=== PATIENT | male | born 1940 | race Caucasian/White ===

== ENCOUNTER 2017-07-30 20:15 | Observation (INO) | payer OTHER, MEDICARE ==
[~2017-07-30] VITALS: Ht 185.4 cm; Wt 81.9 kg
[2017-07-30] MEDS ORDERED: ASPI81CH PO (20:34)
[2017-07-30] MEDS ORDERED: C-10001000 M1 PO (20:34)
[2017-07-30] MEDS ORDERED: HYDCHL50 PO (20:35)
[2017-07-30] MEDS ORDERED: METO25ER PO ×2 (20:35→20:37)
[2017-07-30] MEDS ORDERED: GEMF600 PO ×2 (20:35→20:38)
[2017-07-30] MEDS ORDERED: NITR.4SL SL (20:36)
[2017-07-30 23:29] LABS: U Amphetamine Screen Not Detected; U Barbituate Screen Not Detected; U Benzodiazapine Screen Not Detected; U Buprenorphine Screen Not Detected; U Cannabinoids Screen Not Detected; U Cocaine Screen Not Detected; U Methadone Screen Not Detected; U Methamphetamine Screen Not Detected; U Opiates Screen Not Detected; U Oxycodone Screen Not Detected; U Phencyclidine Screen Not Detected; U Propoxyphene Screen Not Detected
[2017-07-30 23:55] LABS: BASOPHILS ABSOLUTE AUTO 0.05 K/mm3 (0.00-0.23); BASOPHILS PERCENT AUTO 1 % (0-2); EOSINOPHILS PERCENT AUTO 2 % (0-6); Hematocrit 32.4 % (37.0-53.0); Hemoglobin 10.2 g/dL (13.5-17.5); IMMATURE GRAN ABSOLUTE AUTO 0.01 K/mm3 (0.00-0.10); IMMATURE GRAN PERCENT AUTO 0 % (0-1); LYMPHOCYTES ABSOLUTE AUTO 1.48 K/mm3 (0.84-5.20); LYMPHOCYTES PERCENT AUTO 25 % (21-46); MONOCYTES ABSOLUTE AUTO 0.55 K/mm3 (0.16-1.47); MONOCYTES PERCENT AUTO 9 % (4-13); Mean Corpuscular HGB 30.2 pg (26.0-34.0); Mean Corpuscular HGB Conc 31.5 g/dL (31.5-36.5); Mean Corpuscular Volume 96 fL (80-100); Mean Platelet Volume 8.2 fL (9.1-12.4); NEUTROPHILS ABSOLUTE AUTO 3.68 K/mm3 (1.96-9.15); NEUTROPHILS PERCENT AUTO 63 % (41-73); Platelet Count 182 K/mm3 (150-400); RDW Coefficient Variation 14.4 % (11.7-14.2); RDW Standard Deviation 51.1 fL (35.1-46.3); Red Blood Cell Count 3.38 M/mm3 (4.30-5.90); White Blood Cell Count 5.87 K/mm3 (4.00-11.30)
[2017-07-31 00:46] LABS: Anion Gap 8 mmol/L (6-16); Blood Urea Nitrogen 19 mg/dL (8-24); Bun/Creatinine Ratio 15.3 (12.0-20.0); CO2, Blood 26 mmol/L (21-32); Calcium, Blood 9.1 mg/dL (8.5-10.1); Chloride, Blood 102 mmol/L (98-108); Creatinine, Blood 1.24 mg/dL (0.60-1.20); Ethanol (Alcohol), Blood, Med <3 mg/dL; Glomerular Filtration Rate >60 (60-); Glucose, Blood 92 mg/dL (70-99); Potassium, Blood 4.7 mmol/L (3.5-5.5); Sodium, Blood 136 mmol/L (136-145); Troponin I <0.015 ng/mL (0.000-0.040)
[2017-07-31 06:27] LABS: Hematocrit 32.4 % (37.0-53.0); Mean Corpuscular HGB 29.4 pg (26.0-34.0); Mean Corpuscular HGB Conc 30.9 g/dL (31.5-36.5); Mean Corpuscular Volume 95 fL (80-100); Mean Platelet Volume 8.6 fL (9.1-12.4); Platelet Count 181 K/mm3 (150-400); RDW Coefficient Variation 14.4 % (11.7-14.2); RDW Standard Deviation 50.5 fL (35.1-46.3); White Blood Cell Count 5.29 K/mm3 (4.00-11.30)
[2017-07-31 07:37] LABS: BASOPHILS ABSOLUTE MAN 0.05 K/mm3 (0.00-0.23); BASOPHILS PERCENT MAN 1 % (0-2); EOSINOPHILS ABSOLUTE MAN 0.05 K/mm3 (0.00-0.68); EOSINOPHILS PERCENT MAN 1 % (0-6); LYMPHOCYTES % ATYPICAL MANUAL 2 % (0-0); LYMPHOCYTES ABSOLUTE MAN 1.74 K/mm3 (0.84-5.20); LYMPHOCYTES PERCENT MAN 31 % (21-46); MONOCYTES ABSOLUTE MAN 0.52 K/mm3 (0.16-1.47); MONOCYTES PERCENT MAN 10 % (4-13); SEG NEUTROPHILS PERCENT MAN 55 % (41-73); TOTAL CELLS COUNTED 100
[2017-07-31 07:54] LABS: Anion Gap 8 mmol/L (6-16); Blood Urea Nitrogen 17 mg/dL (8-24); Bun/Creatinine Ratio 15.6 (12.0-20.0); CHOL/HDL RATIO 2.4; CO2, Blood 23 mmol/L (21-32); Calcium, Blood 8.9 mg/dL (8.5-10.1); Chloride, Blood 104 mmol/L (98-108); Cholesterol 82 mg/dL (50-200); Creatinine, Blood 1.09 mg/dL (0.60-1.20); Glomerular Filtration Rate >60 (60-); Glucose, Blood 76 mg/dL (70-99); HDL Cholesterol 34 mg/dL (>39); LDL/HDL RATIO 1.1; Low Density Lipoprotein Chol 39 mg/dL (0-110); Potassium, Blood 4.1 mmol/L (3.5-5.5); Sodium, Blood 135 mmol/L (136-145); Triglycerides 47 mg/dL (30-160); Troponin I <0.015 ng/mL (0.000-0.040); Very Low Density Lipoprot Chol 9 mg/dL (6-32)
[2017-07-31 08:21] LABS: Percent Saturation 97.9 % (20.0-50.0)
[2017-07-31 10:43] LABS: Source, Urine Clean Catch
[2017-07-31 10:45] LABS: Bilirubin, Urine Neg (Neg); Blood, Urine 3+ (Neg); Glucose Qualitative, Urine Neg (Neg); Ketones, Urine 2+ (Neg); Leukocyte Esterase, Urine Neg (Neg); Nitrite, Urine Neg (Neg); Protein, Urine 1+ (Neg); Urobilinogen, Urine NORM (Normal)
[2017-07-31 10:50] LABS: Appearance, Urine Clear (Clear); Color, Urine Yellow (P-Yellow)
[2017-07-31 10:57] LABS: Bacteria Rare /hpf; Squamous Epithelial Cells Rare /hpf (Few); White Blood Cells, Urine Not Seen /hpf (0-5)
[2017-08-01 10:58] LABS: International Normalized Ratio 1.15
[2017-08-01 11:29] LABS: Percent Saturation 97.3 % (20.0-50.0)
[2017-08-01] MEDS ORDERED: Fludrocortison0.1 MG PO (12:38)
== END 2017-08-01 14:28 | disposition home or self-care (01) ==
LOC: ER 20:15 → MEDS 20:16 → ER 22:57 → MEDS 08-01 14:28
PROVIDERS: Family Medicine; Internal Medicine
DX: R55 Syncope and collapse (principal); I10 Essential (primary) hypertension; E78.5 Hyperlipidemia, unspecified; I25.10 Atherosclerotic heart disease of native coronary artery without angina pectoris; D53.9 Nutritional anemia, unspecified; Z90.49 Acquired absence of other specified parts of digestive tract; Z86.73 Personal history of transient ischemic attack (TIA), and cerebral infarction without residual deficits; Z88.0 Allergy status to penicillin; Z88.8 Allergy status to other drugs, medicaments and biological substances; Z79.82 Long term (current) use of aspirin; Z87.891 Personal history of nicotine dependence; Z98.890 Other specified postprocedural states
CPT/HCPCS: 36415; 70450; 72040; 80048; 80061; 81001; 82533; 82607; 82728; 82746; 82947; 83540; 83550; 83880; 84443; 84466; 84484; 85025; 85610; 85730; 93005; 93010; 93306; 96361; 96372; 96376; 99285; G0378; G0480; J0360; J1650; J7030

== ENCOUNTER 2020-12-26 19:28 | Inpatient (IN) | payer OTHER, MEDICARE ==
[~2020-12-26] VITALS: Ht 188 cm; Wt 96.6 kg
[~2020-12-26 19:28] MED LIST: ASPI81CH PO; C-10001000 M1 PO; Fludrocortison0.1 MG PO; GEMF600 PO; HYDCHL50 PO; METO25ER PO; NITR.4SL SL
[2020-12-26 21:19] LABS: BASOPHILS ABSOLUTE AUTO 0.05 K/mm3 (0.00-0.23); BASOPHILS PERCENT AUTO 1 % (0-2); EOSINOPHILS ABSOLUTE AUTO 0.04 K/mm3 (0.00-0.68); EOSINOPHILS PERCENT AUTO 0 % (0-6); Hematocrit 43.4 % (37.0-53.0); Hemoglobin 14.6 g/dL (13.5-17.5); IMMATURE GRAN ABSOLUTE AUTO 0.03 K/mm3 (0.00-0.10); IMMATURE GRAN PERCENT AUTO 0 % (0-1); LYMPHOCYTES ABSOLUTE AUTO 0.82 K/mm3 (0.84-5.20); LYMPHOCYTES PERCENT AUTO 8 % (21-46); MONOCYTES ABSOLUTE AUTO 0.88 K/mm3 (0.16-1.47); MONOCYTES PERCENT AUTO 9 % (4-13); Mean Corpuscular HGB 31.8 pg (26.0-34.0); Mean Corpuscular HGB Conc 33.6 g/dL (31.5-36.5); Mean Corpuscular Volume 95 fL (80-100); Mean Platelet Volume 9.2 fL (9.1-12.4); NEUTROPHILS ABSOLUTE AUTO 8.19 K/mm3 (1.96-9.15); NEUTROPHILS PERCENT AUTO 82 % (41-73); Platelet Count 189 K/mm3 (150-400); RDW Coefficient Variation 13.1 % (11.7-14.2); RDW Standard Deviation 45.8 fL (35.1-46.3); Red Blood Cell Count 4.59 M/mm3 (4.30-5.90); White Blood Cell Count 10.01 K/mm3 (4.00-11.30)
[2020-12-26 21:53] LABS: Alanine Aminotransfer (ALT/SGP 52 U/L (12-78); Albumin, Blood 3.8 g/dL (3.4-5.0); Albumin/Globulin Ratio 1.3 (0.8-1.8); Alk Phos 72 U/L (50-136); Anion Gap 4 mmol/L (6-16); Aspartate Aminotrans (AST/SGOT 169 U/L (12-37); Bilirubin, Total 1.2 mg/dL (0.1-1.0); Blood Urea Nitrogen 14 mg/dL (8-24); Bun/Creatinine Ratio 12.2 (12.0-20.0); CO2, Blood 28 mmol/L (21-32); Calcium, Blood 8.6 mg/dL (8.5-10.1); Chloride, Blood 103 mmol/L (98-108); Creatinine, Blood 1.15 mg/dL (0.60-1.20); Globulin, Blood 2.9 g/dL (2.2-4.0); Glomerular Filtration Rate >60 (60-); Glucose, Blood 117 mg/dL (70-99); Sodium, Blood 135 mmol/L (136-145); Total Protein, Blood 6.7 g/dL (6.4-8.2)
--- NOTE | 2020-12-27 01:05 | NUR ---
PT ARRIVES TO ICU 8 VIA GURNEY FROM ER, DENIES PAIN ON ARRIVAL, DENIES CP/PRESSURE, DENIES DIZZINESS/VERTIGO, DENIES SOB/DYSPNEA. STANDS TO TRANSFER WITH STEADY GAIT. LUNGS CLEAR THROUGHOUT, SATS HIGH 90S ON ROOM AIR, SPEAKING IN FULL SENTENCES WITHOUT VISIBLE INCREASED WORK OF BREATHING NOTED. HRR, 3RD DEGREE AV BLOCK IS NOTED ON MONITOR, RATE 40S, PRESSURES ARE MAINTAINING AND PULSES ARE FULL X 4 EXTREMITIES, NO EDEMA IS NOTED, SKIN PWD WITH BRISK CAP REFILL. ACTIVE BOWEL TONES, ABD SOFT, NONTENDER TO PALPATION. VOIDS CLEAR DARK YELLOW URINE WITHOUT DIFFICULTY. IV ACCESS TO LEFT WRIST NOTED, WILL PLAN TO ATTEMPT EXTENDED DWELL.
[2020-12-27] MEDS ORDERED: Vitamin B-121000 MCG PO (01:24)
[2020-12-27] MEDS ORDERED: VITAMIN D310 MC4 PO (01:26)
[2020-12-27 04:16] LABS: BASOPHILS ABSOLUTE AUTO 0.04 K/mm3 (0.00-0.23); BASOPHILS PERCENT AUTO 0 % (0-2); EOSINOPHILS ABSOLUTE AUTO 0.02 K/mm3 (0.00-0.68); EOSINOPHILS PERCENT AUTO 0 % (0-6); Hematocrit 38.6 % (37.0-53.0); Hemoglobin 13.1 g/dL (13.5-17.5); IMMATURE GRAN ABSOLUTE AUTO 0.03 K/mm3 (0.00-0.10); IMMATURE GRAN PERCENT AUTO 0 % (0-1); LYMPHOCYTES ABSOLUTE AUTO 1.13 K/mm3 (0.84-5.20); LYMPHOCYTES PERCENT AUTO 12 % (21-46); MONOCYTES ABSOLUTE AUTO 0.88 K/mm3 (0.16-1.47); MONOCYTES PERCENT AUTO 9 % (4-13); Mean Corpuscular HGB 32.3 pg (26.0-34.0); Mean Corpuscular HGB Conc 33.9 g/dL (31.5-36.5); Mean Corpuscular Volume 95 fL (80-100); Mean Platelet Volume 9.3 fL (9.1-12.4); NEUTROPHILS ABSOLUTE AUTO 7.53 K/mm3 (1.96-9.15); NEUTROPHILS PERCENT AUTO 78 % (41-73); Platelet Count 164 K/mm3 (150-400); RDW Coefficient Variation 13.1 % (11.7-14.2); RDW Standard Deviation 45.9 fL (35.1-46.3); Red Blood Cell Count 4.05 M/mm3 (4.30-5.90); White Blood Cell Count 9.63 K/mm3 (4.00-11.30)
[2020-12-27 04:56] LABS: Alanine Aminotransfer (ALT/SGP 42 U/L (12-78); Albumin, Blood 3.3 g/dL (3.4-5.0); Albumin/Globulin Ratio 1.3 (0.8-1.8); Alk Phos 62 U/L (50-136); Anion Gap 5 mmol/L (6-16); Aspartate Aminotrans (AST/SGOT 133 U/L (12-37); Bilirubin, Total 1.4 mg/dL (0.1-1.0); Blood Urea Nitrogen 16 mg/dL (8-24); Bun/Creatinine Ratio 13.2 (12.0-20.0); CHOL/HDL RATIO 2.9; CO2, Blood 27 mmol/L (21-32); Chloride, Blood 103 mmol/L (98-108); Cholesterol 117 mg/dL (50-200); Creatinine, Blood 1.21 mg/dL (0.60-1.20); Globulin, Blood 2.5 g/dL (2.2-4.0); Glomerular Filtration Rate >60 (60-); Glucose, Blood 127 mg/dL (70-99); HDL Cholesterol 40 mg/dL (>39); LDL/HDL RATIO 1.8; Low Density Lipoprotein Chol 71 mg/dL (0-110); Sodium, Blood 135 mmol/L (136-145); Total Protein, Blood 5.8 g/dL (6.4-8.2); Triglycerides 32 mg/dL (30-160); Very Low Density Lipoprot Chol 6 mg/dL (6-32)
--- NOTE | 2020-12-27 06:39 | NUR ---
PT NEW ADMIT THIS SHIFT FOR NSTEMI AND 3RD DEGREE AV BLOCK. HE HAS DENIED CP SINCE ARRIVAL, ADMITS TO SOB AT 0620 HOWEVER STATES THAT IT IS LOWER IN INTENSITY THAN HIS INITIAL SHORTNESS OF BREATH AT HOME, PT BOOSTED IN BED AND WILL MONITOR. HEART RATE CONTINUES IN THE 40S, PRESSURES ARE MAINTAINING, HEPARIN GTT INFUSING AT 13 UNITS/KG/HR WITH NEXT PTT DUE TO DRAW AT 1000.
[2020-12-27 08:54] LABS: SARS-Cov-2 (COVID-19) PCR, MMC NEGATIVE (NEGATIVE)
--- NOTE | 2020-12-27 09:15 | NUR ---
ASSUMPTION OF CARE PT ALERT AND ORIENTED, DOUG CP, SOB, REPORTS MILD NAUSEA, ZOFRAN ADMINISTERED. O2 SATURATIONS> 90% ON RA, MONITOR SHOWS HEART BLOCK WITH HR 40'S. HEPARIN GTT INFUSING. DR NUNN TO ROOM TO DISCUSS ICT SALES REPRESENTATIVE PROCEDURE(S). PT HESITANT TO ALLOW FOR COVID TESTING BUT EVENTUALLY AGREED, SPECIMENT COLLECTED AND SENT TO LAB. PT TO ICT SALES REPRESENTATIVE AT 0910.
--- NOTE | 2020-12-27 09:47 | NUR ---
echocardiogram completed
--- NOTE | 2020-12-27 15:01 | NUR ---
SHIFT SUMMARY PT RETURNED TO ICU 8 FROM DIRECTOR OF GRADUATE ADMISSIONS @ 1315, PT DENIES CP, SOB, NAUSEA OR OTHER DISCOMFORT. PT REMAINS ON RA, TEMPORARY PACER TO RIJ @ APPROX 45 CM, PT 100% PACED, RATE SET TO 70, THEN DECREASED TO 60 AND AGAIN TO [address] MARTEL. R RADIA ACCESS, TR BAND IN PLACE, DISTAL FINGERS COOL TO THE TOUCH, PT DENIES NUMBNESS OR TINGLING. R GROIN SITE STABLE, GIORGIO DRESSING IN PLACE, SITE IS SOFT AND NON TENDER, DISTAL PEDAL PULSES FAINT BUT PALPABLE. REPORT GIVENT TO FEDERICO BUTLER.
--- NOTE | 2020-12-27 15:29 | NUR ---
ASSUMED PT CARE FROM CARRIE MURPHY AT 1430 PT RESTING SUPINE IN BED. TR BAND TO RIGHT RADIAL SITE WITH 3-5CM HEMATOMA NOTED; NO OOZING AT SITE. DISTAL FINGERS ARE PALE AND COOL; HOWEVER, PULSE OX WITH GOOD PLETH AND PULSE IS FAINT, BUT PALPABLE. ACT >200; THEREFORE, GOAL TO START RELEASING AIR 2HRS POST TR BAND PLACEMENT. RIGHT GROIN SITE HAS MINIMAL BLEEDING TO GIORGIO DRESSING; SURROUNDING AREA IS SOFT, NON-TENDER WITH NO OOZING NOTED. TRANSVENOUS PACER TO RIGHT IJ; APPROXIMATELY 45CM EXPOSED. RATE SET TO 50BPM, OUTPUT 3mA, AND SENSITIVITY 5mV. PT DENIES ANY CHEST PAIN OR N/V. PULSES ARE FAINT, BUT PALPABLE TO ALL EXTREMITIES. PT IS VERY COOL TO THE TOUCH WITH PALE EXTREMITIES. PT UTILIZING URINAL TO VOID. UTILIZES CALL LIGHT APPROPRIATELY. IS AT BEDSIDE.
--- NOTE | 2020-12-27 18:07 | NUR ---
END OF SHIFT SUMMARY NO SIGNIFICANT CHANGES SINCE LAST ENTRY. PT REMAINS WITHOUT CHEST PAIN OR N/V. TRANSVENOUS PACER REMAINS SET AT A RATE OF 50, 3mA, 5mV. PT REMAINS IN A COMPLETE HB WITH RATE 50-55. PT DENIES SOB. VSS, SEE FLOWSHEET. RIGHT GROIN SITE HAS MINIMAL AMOUNTS OF SEROSANGUINEOUS DRAINAGE TO GIORGIO, WHICH MARGINS HAVE BEEN MARKED AND DRAINAGE REMAINED WITHIN MARGINS. RIGHT RADIAL SITE TR BAND REMAINS IN PLACE. ATTEMPTED TO DEFLATE THE LAST 3CC OF AIR AND SITE STARTED OOZING. REINSTILLED 5CC OF AIR. RECHECKED SITE WITH MINIMAL OOZING NOTED AGAIN; REINSTILLED ANOTHER 2CC OF AIR AND WILL LEAVE IN PLACE X30 MIN BEFORE ATTEMPTING REMOVAL AGAIN. PT REMAINS ALERT AND ORIENTED; PLEASANT AND COOPERATIVE WITH CARES. NS INFUSING AT 100MLS/HR. WILL CONTINUE TO MONITOR UNTIL REPORT IS HANDED OFF TO CARRIE DUNN.
--- NOTE | 2020-12-27 19:00 | NUR ---
ASSUMED CARE ASSUMED CARE OF PATIENT. AWAKE AND ALERT, WATCHING TELEVISION. DENIES C/O PAIN OR DISCOMFORT AT THIS TIME. MONITOR SHOWS CONTINUED COMPLETE HEART BLOCK, RATE 50S. TRANSVENOUS PACEMAKER TO RIJ- RATE SET AT 50. BP STABLE. TR BAND TO RIGHT RADIAL- HEMATOMA NOTED ABOVE SITE, BUT IS UNCHANGED FROM PREVIOUS ASSESSMENT ACCORDING TO OFFGOING RN. ADDITIONAL 2CC OF AIR REMOVED FROM [place] AT THIS TIME. RIGHT GROIN SITE IS SOFT AND WITHOUT HEMATOMA. DRSG WITH SMALL AMOUNT OF OLD BLOOD NOTED. POWERGLIDE NOTED TO JOSE. NS INFUSING AT 100CC/HR TO FINISH CURRENT IV BAG. VOIDING WITHOUT DIFFICULTY. SEE SHIFT ASSESSMENT FOR FULL ASSESSMENT.
--- NOTE | 2020-12-27 20:30 | NUR ---
TRANSVENOUS PACEMAKER DR. MARTEL IN TO SEE PT AT THIS TIME. PER MD, TRANSVENOUS PACEMAKER RATE DECREASED TO 40BPM. WILL INCREASE TO 60, IF PT BECOMES SYMPTOMATIC WITH BRADYCARDIA.
--- NOTE | 2020-12-27 21:44 | NUR ---
CALL FROM RECEIVED CALL FROM DR. MARTEL- PLAN FOR POSSIBLE PERMANENT PACEMAKER IMPLANT IN AM. PT TO BE NPO AFTER MIDNIGHT AND TO RECEIVE VANCOMYCIN IV PRIOR TO [facility].
[2020-12-28 04:59] LABS: BASOPHILS ABSOLUTE AUTO 0.06 K/mm3 (0.00-0.23); BASOPHILS PERCENT AUTO 1 % (0-2); EOSINOPHILS ABSOLUTE AUTO 0.06 K/mm3 (0.00-0.68); EOSINOPHILS PERCENT AUTO 1 % (0-6); Hemoglobin 11.5 g/dL (13.5-17.5); IMMATURE GRAN ABSOLUTE AUTO 0.02 K/mm3 (0.00-0.10); IMMATURE GRAN PERCENT AUTO 0 % (0-1); LYMPHOCYTES ABSOLUTE AUTO 0.86 K/mm3 (0.84-5.20); LYMPHOCYTES PERCENT AUTO 11 % (21-46); MONOCYTES ABSOLUTE AUTO 0.74 K/mm3 (0.16-1.47); MONOCYTES PERCENT AUTO 10 % (4-13); Mean Corpuscular HGB 32.3 pg (26.0-34.0); Mean Corpuscular HGB Conc 33.8 g/dL (31.5-36.5); Mean Corpuscular Volume 96 fL (80-100); Mean Platelet Volume 9.7 fL (9.1-12.4); NEUTROPHILS ABSOLUTE AUTO 5.93 K/mm3 (1.96-9.15); NEUTROPHILS PERCENT AUTO 77 % (41-73); Platelet Count 136 K/mm3 (150-400); RDW Coefficient Variation 13.3 % (11.7-14.2); Red Blood Cell Count 3.56 M/mm3 (4.30-5.90); White Blood Cell Count 7.67 K/mm3 (4.00-11.30)
[2020-12-28 05:45] LABS: Bun/Creatinine Ratio 14.4 (12.0-20.0); Calcium, Blood 7.7 mg/dL (8.5-10.1); Creatinine, Blood 1.25 mg/dL (0.60-1.20); Potassium, Blood 3.7 mmol/L (3.5-5.5)
--- NOTE | 2020-12-28 06:18 | NUR ---
SHIFT SUMMARY NO ACUTE CHANGES. SLEPT MOST OF NOC WHEN UNDISTURBED. DENIES C/O PAIN OR DISCOMFORT. REPOSITIONS SELF IN BED WITHOUT DIFFICULTY. MONITOR SHOWS COMPLETE HEART BLOCK, RATE MID-40s TO 50s. BP STABLE. RIJ TRANSVENOUS PACEMAKER INTACT, SET TO 40BPM. VOIDING WITHOUT DIFFICULTY. PT HAS BEEN NPO SINCE MIDNOC PER DR. MARTEL. RIGHT RADIAL SITE WITH DRSG INTACT. SMALL AMOUNT OF OLD BLOOD UNDER DRSG AND HEMATOMA UNCHANGED. RIGHT GROIN DRSG INTACT. SITE IS SOFT. OLD BLOOD NOTED ON DRSG. AM EKG DONE. WILL REPORT TO ONCOMING RN WHEN AVAILABLE.
--- NOTE | 2020-12-28 09:00 | NUR ---
PT RESTING IN BED. A/O X4, DENIES CP, SOB, AND N/V. HAS TEMP PACER THROUGH [facility]. IT IS POSITIONED AT 40-45CM, RATE 40, OUTPUT 3mA, SENSITIVITY 5mV. DR. GLASS STATES WE WILL WATCH PT FOR ANOTHER 24HRS BEFORE DECIDING ON PERMANENT PACER. PT ABLE TO EAT BREAKFAST. C/O DARK URINE BUT IS IMPROVING. GOT LASIX THIS AM. ENCOURAGING PO INTAKE. PT HAS R RADIAL ACCESS SITE THAT HAS A HEMATOMA THAT HAD BEEN OUTLINED YESTERDAY. HEMATOMA HAS SHRUNK DOWN FROM MARKING. ARMBOARD IN PLACE. HAS R FEMORAL ACCESS SITE WITH SMALL AMT OF OLD BLOOD ON GIORGIO DRESSING. SITE IS SOFT AND NON TENDER. NO SIGN OF DISTRESS. CALL LIGHT IN REACH.
--- NOTE | 2020-12-28 18:28 | NUR ---
SUMMARY PT RESTING IN BED. DENIES PAIN, SOB, AND N/V. TEMP PACER UNCHANGED ALL DAY. R RADIAL ACCESS STABLE AND UNCHANED. R FEMORAL ACCESS SITE STABLE AND UNCHANGED. NO SIGN OF DISTRESS. CALL LIGHT IN REACH. NO REQUESTS AT THIS TIME.
--- NOTE | 2020-12-28 19:00 | NUR ---
ASSUMED CARE ASSUMED CARE OF PATIENT. RESTING QUIETLY WHEN UNDISTURBED. ROUSES EASILY TO STIMULI. DENIES C/O PAIN OR DISCOMFORT AT THIS TIME. MONITOR SHOWS CONTINUED HEART BLOCK, RATE 40s-50S. TRANSVENOUS PACEMAKER TO RIJ- RATE SET AT 40. BP STABLE. RIGHT RADIAL SITE WITH DRSG INTACT. ARM BOARD IN PLACE. ECCHYMOSES NOTED. RIGHT GROIN SITE IS SOFT AND WITHOUT HEMATOMA. DRSG WITH SMALL AMOUNT OF OLD BLOOD NOTED. POWERGLIDE NOTED TO JOSE. VOIDING WITHOUT DIFFICULTY. SEE SHIFT ASSESSMENT FOR FULL ASSESSMENT.
[2020-12-29 04:24] LABS: BASOPHILS ABSOLUTE AUTO 0.06 K/mm3 (0.00-0.23); BASOPHILS PERCENT AUTO 1 % (0-2); EOSINOPHILS ABSOLUTE AUTO 0.15 K/mm3 (0.00-0.68); EOSINOPHILS PERCENT AUTO 2 % (0-6); Hematocrit 32.9 % (37.0-53.0); Hemoglobin 11.3 g/dL (13.5-17.5); IMMATURE GRAN ABSOLUTE AUTO 0.02 K/mm3 (0.00-0.10); IMMATURE GRAN PERCENT AUTO 0 % (0-1); LYMPHOCYTES ABSOLUTE AUTO 0.77 K/mm3 (0.84-5.20); LYMPHOCYTES PERCENT AUTO 11 % (21-46); MONOCYTES ABSOLUTE AUTO 0.62 K/mm3 (0.16-1.47); MONOCYTES PERCENT AUTO 9 % (4-13); Mean Corpuscular HGB 32.6 pg (26.0-34.0); Mean Corpuscular HGB Conc 34.3 g/dL (31.5-36.5); Mean Corpuscular Volume 95 fL (80-100); NEUTROPHILS ABSOLUTE AUTO 5.34 K/mm3 (1.96-9.15); NEUTROPHILS PERCENT AUTO 77 % (41-73); Platelet Count 135 K/mm3 (150-400); RDW Coefficient Variation 13.2 % (11.7-14.2); RDW Standard Deviation 45.5 fL (35.1-46.3); Red Blood Cell Count 3.47 M/mm3 (4.30-5.90); White Blood Cell Count 6.96 K/mm3 (4.00-11.30)
[2020-12-29 04:58] LABS: Bun/Creatinine Ratio 17.2 (12.0-20.0); Calcium, Blood 8.2 mg/dL (8.5-10.1); Creatinine, Blood 1.28 mg/dL (0.60-1.20)
--- NOTE | 2020-12-29 06:30 | NUR ---
SHIFT SUMMARY NO ACUTE CHANGES. SLEPT WHEN UNDISTURBED. CONTINUES IN COMPLETE HEART BLOCK WITH OCCASIONAL PACED BEATS. BP STABLE. DENIES C/O PAIN OR DISCOMFORT. PT HAS BEEN NPO SINCE [facility] FOR POSSIBLE PERMANENT PACEMAKER PLACEMENT. RIJ TRANSVENOUS PACEMAKER INTACT- APPROXIMATELY 40-45CM PLACEMENT. VOIDING WITHOUT DIFFICULTY. WILL REPORT TO ONCOMING RN WHEN AVAILABLE.
--- NOTE | 2020-12-29 08:30 | NUR ---
ASSUMED CARE OF PT, REPORT RCV'D FROM CARRIE LARSON. PT ALERT AND ORIENTED SITTING UP IN BED. PT DENIES PAIN OR NEEDS AT THIS TIME. TRANSVENOUS PACER TO [facility], SET RATE 40. HR 39-65. DR. GORMAN AT BEDSIDE WITH PLAN FOR PERMANENT PACER THIS AFTERNOON. PT UPDATE WITH PLAN AND ALL QUESTIONS ANSWERED. RIGHT RADIAL ACCESS SITE, BRUISED WITH SLIGHT HEMATOMA (UNCHANGED PER NOC NURSE). CLEAR DRESSING TO WRIST, ARM BOARD REMOVED AND PT EDUCATED TO MINIMIZE MOVEMENT. RIGHT GROIN ACCESS SITE WITH GIORGIO DRESSING, SCANT AMOUNT OF DRIED BLOOD NOTED. SITE SOFT, NON TENDER. DISTAL PULSES/PALLOR WNL. SEE FULL SHIFT ASSESSMENT.
--- NOTE | 2020-12-29 14:34 | NUR ---
PT'S AT BEDSIDE INQUIRING ABOUT [facility] COVERAGE [facility] PACEMAKER. CALLED PT'S PLASTER CASTER AND DISCUSSED PLAN OF ACTION. RELAYED INFORMATION TO PT'S AND ENCOURAGED HER TO CALL [facility] AND UPDATE THEM ON PT'S INPATIENT STATUS AND NEED FOR PERMANENT PACER PLACEMENT.
--- NOTE | 2020-12-29 16:21 | NUR ---
PT TRANSPORTED [facility]IA [facility] FOR PACER [facility]ACEMENT.
--- NOTE | 2020-12-29 18:40 | NUR ---
PT BACK FROM GROOVER AND STRIPER OPERATOR WITH DUAL CHAMBER PACER TO THE LEFT UPPER CHEST, DRESSING IN PLACE. PT STABLE ON ARRIVAL, PT DENIES PAIN, SHORTNESS OF BREATH OR DIZZINESS. ATRIAL PACER SPIKES NOTED ON MONITOR. HR MID 70'S. PER GROOVER AND STRIPER OPERATOR NURSE PT'S PACER SET TO RATE OF 60. GROOVER AND STRIPER OPERATOR TO BRING UP PACER PAPERWORK WHEN AVAILABLE. PT'S AT BEDSIDE, DENIES QUESTIONS AT THIS TIME. RIGHT IJ REMAINS IN PLACE, TO BE PULLED DEAN BY NURSING STAFF. WILL REPORT TO ONCOMING NURSE.
--- NOTE | 2020-12-29 20:24 | NUR ---
CARE ASSUMPTION PT RESTING IN BED HAVING JUST FINISHED HIS DINNERAT START OF SHIFT. PTDENYING ANY PAIN AND PACER SX SITE IS NON-TENDER AND SHOWS NO SWELLING OR INFLAMATION AT THIS TIME. VSS, AND 02 SATS >92% ON RM AIR. PT DENYING ANY CP OR PRESSURE. TELE SHOWING PACED RYTHYM IN THE 'S.
--- NOTE | 2020-12-29 20:50 | NUR ---
NO SLING PT ARRIVED FROM PACEMEKER PLACEMENT WITH NO SLING DUE TO IJ LINE ON OPPOSING SIDE OF PACEMAKER. DISSCUSSED NEED TO MAINTAIN LOW NEUTRAL POSITION AND NOT USING LEFT ARM TO PUSH OFF OF THE BED WITH THE PT AND HOW THIS COULD CAUSES LEAD DISPLACEMENT OF THE PACEMAKER. PT ABLE TO REPEAT THIS INFORMATION AND DEMONSTRATE HIS UNDERSTANDING OF THESE INSTRUCTIONS. THIS RN DISCUSSED THIS PLAN W CARE TEAM.
--- NOTE | 2020-12-29 21:58 | NUR ---
UPDATE 2144 PT HAD o2 SATS <90% SO 2L O2 PLACED ON PT VIA NC WHICH BROUGHT O2 SATS >92%. ALSO DR. GORMAN CONSULTED THE PT AT THE BEDSIDE AND STATED HE WILL PLACE ORDERS TO CHANGE PT STATUS TO PCU STATUS SO IJ LINE CAN BE REMOVED. AWAITING ORDERS.
--- NOTE | 2020-12-29 23:11 | NUR ---
REMOVED CORDIS CORDIS REMOVED PER PROTOCOL, MINIMAL BLEEDING NOTED. PT TOLERATED WELL. PRESSURE HELD FOLLOWED BY PRESSURE DRESSING PLACED.
--- NOTE | 2020-12-30 00:33 | NUR ---
CARE HAND OFF THIS RN BEING TRANSFERED TO DIFFERENT UNIT. REPORT GIVEN TO FEDERICO BUTLER. NURSE NOTIFIED OF PT'S RISING TEMPATURE.
--- NOTE | 2020-12-30 00:54 | NUR ---
ASSUMED PT CARE FROM CARRIE SARAVIA PT LYING IN BED; EASILY AROUSABLE AND ABLE TO MAKE NEEDS KNOWN. 2L OF OXYGEN VIA NC WITH SPO2 >90%. PT HAS A PACEMAKER SECONDARY TO A THIRD DEGREE HEART BLOCK, WITH FIRST DEGREE HB, WELL A BUNDLE BRANCH BLOCK; OCCASIONALLY VENTRICULAR PACING NOTED; HR 60'S. BP'S STABLE, SEE FLOWSHEET. DENIES CHEST PAIN, SOB, WELL N/V. RIGHT GROIN AND RIGHT RADIAL SITES ARE STABLE; RIGHT RADIAL SITE HAS DIFFUSE BRUISING. DRESSING TO RIGHT IJ HAS MINIMAL SEROSANGUINEOUS DRAINAGE NOTED. PACEMAKER SITE IS COVERED WITH DRESSING WHICH IS CDI. PT IS FEBRILE WITH TEMP 100.7. PT TO REMAIN AT 30 DEGREES PER REPORT ORDERS FROM DR. GORMAN. PT UNABLE TO TOLERATE; THEREFORE, BED PLACED SLIGHTLY IN REVERSE [place] TO MAINTAIN HOB AT [address] TO LEFT ARM; PT UNDERSTANDING OF RESTRICTIONS. PT ABLE TO SHIFT OWN WEIGHT AND REPOSITION SELF IN BED. CALL LIGHT IS WITHIN REACH. WILL CONTINUE TO MONITOR.
--- NOTE | 2020-12-30 06:28 | NUR ---
END OF SHIFT SUMMARY NO SIGNIFICANT CHANGES SINCE LAST ENTRY. TMAX OF 100.7. PACEMAKER SITE TO LEFT UPPER CHEST WALL HAS A DRY AND CLEAN DRESSING IN PLACE; HOWEVER, SURROUNDING TISSUE APPEARS RED AND WARM TO THE TOUCH. SLING IS IN PLACE. PT HAS BEEN OCCASIONALLY VENTRICULARLY PACED AND RARELY DUAL PACED THIS SHIFT. RATE REMAINS 60-70'S. FIRST DEGREE HB WITH BBB. PT IS CURRENTLY ON ROOM AIR WITH SPO2 >90%. SALINE LOCKED AT THIS TIME WITH POWERGLIDE TO LEFT UPPER ARM. PT REMAINS ALERT AND ORIENTED AND ABLE TO MAKE HIS NEEDS KNOWN. CALL LIGHT IS WITHIN REACH; WILL CONTINUE TO MONITOR UNTIL REPORT IS HANDED OFF TO ONCOMING RN.
--- NOTE | 2020-12-30 07:19 | NUR ---
ASSUMED CARE OF PT THIS MORNING. PT IS A/O X 4 BUT IS MILDLY [place] AT BASELINE. PT HAS A 2 VIEW CXR SCHEDULED FOR THIS MORNING AND THE TECH CALLED TO SAY THAT SHE WILL BE UP AFTER BREAKFAST. SITE DRESSINGS X 3 ARE CDI. THERE IS SOME REDNESS NOTED TO LEFT CHEST WALL. PT IS RESTING IN BED AND HE IS ABLE TO MAKE HIS NEEDS KNOWN.
--- NOTE | 2020-12-30 08:58 | NUR ---
DR GORMAN SAW THE PT AT THE BEDSIDE AND GAVE VERBAL PACEMAKER DC INSTRUCTIONS. DR GORMAN ASKED THAT WE INTERROGATE THE PT PACEMAKER AT THE BEDSIDE BEFORE DC HOME TODAY.
[2020-12-30] MEDS ORDERED: ATOR40TA PO (09:41)
[2020-12-30] MEDS ORDERED: CLOP75 PO (09:42)
[2020-12-30] MEDS ORDERED: Nitrostat0.3 MG SL (09:43)
--- NOTE | 2020-12-30 10:04 | NUR ---
PT HAS DC ORDERS. ALL INSTRUCTIONS WERE REVIEWED WITH THE PT AND ALL QUESTIONS ANSWERED. MIDLINE WAS REMOVED WITH NO ISSUE. PT IS IN ROUTE TO PICK HIM UP AND HE IS GETTING DRESSED. PT HAS PACKED HIS PERSONAL BELONGINGS.
== END 2020-12-30 10:30 | disposition home or self-care (01) | DRG 242 ==
LOC: ER 19:28 → ICUE 23:30 → ICUW 23:30 → ICUE 12-27 01:03
PROVIDERS: Internal Medicine Cardiovascular Disease; Physician Assistant; ADMIT Internal Medicine
PROC: 027034Z Dilation of Coronary Artery, One Artery with Drug-eluting Intraluminal Device, Percutaneous Approach (ICD-10-PCS; principal; 2020-12-27)
PROC: B2171ZZ Fluoroscopy of Right Internal Mammary Bypass Graft using Low Osmolar Contrast (ICD-10-PCS; 2020-12-27)
PROC: B2111ZZ Fluoroscopy of Multiple Coronary Arteries using Low Osmolar Contrast (ICD-10-PCS; 2020-12-27)
PROC: B2151ZZ Fluoroscopy of Left Heart using Low Osmolar Contrast (ICD-10-PCS; 2020-12-27)
PROC: 5A1223Z Performance of Cardiac Pacing, Continuous (ICD-10-PCS; 2020-12-27)
PROC: 0JH606Z Insertion of Pacemaker, Dual Chamber into Chest Subcutaneous Tissue and Fascia, Open Approach (ICD-10-PCS; 2020-12-29)
PROC: 02H63JZ Insertion of Pacemaker Lead into Right Atrium, Percutaneous Approach (ICD-10-PCS; 2020-12-29)
PROC: 02HK3JZ Insertion of Pacemaker Lead into Right Ventricle, Percutaneous Approach (ICD-10-PCS; 2020-12-29)
DX: I21.4 Non-ST elevation (NSTEMI) myocardial infarction (principal); I50.21 Acute systolic (congestive) heart failure; I44.2 Atrioventricular block, complete; I13.0 Hypertensive heart and chronic kidney disease with heart failure and stage 1 through stage 4 chronic kidney disease, or unspecified chronic kidney disease; Z51.5 Encounter for palliative care; Z20.822 Contact with and (suspected) exposure to COVID-19; E78.5 Hyperlipidemia, unspecified; I25.10 Atherosclerotic heart disease of native coronary artery without angina pectoris; C88.0 Waldenstrom macroglobulinemia; H91.90 Unspecified hearing loss, unspecified ear; I25.5 Ischemic cardiomyopathy; E87.6 Hypokalemia; I71.4 Abdominal aortic aneurysm, without rupture; E66.3 Overweight; D63.1 Anemia in chronic kidney disease; N18.30 Chronic kidney disease, stage 3 unspecified; D69.6 Thrombocytopenia, unspecified; Z68.28 Body mass index [BMI] 28.0-28.9, adult; Z95.1 Presence of aortocoronary bypass graft; Z90.49 Acquired absence of other specified parts of digestive tract; Z87.891 Personal history of nicotine dependence; Z86.73 Personal history of transient ischemic attack (TIA), and cerebral infarction without residual deficits
CPT/HCPCS: 33208; 33210; 36415; 71045; 71046; 76937; 80048; 80053; 80061; 83690; 83880; 84443; 84484; 85025; 85347; 85730; 93005; 93010; 93306; 93455; 99152; 99153; 99285-25; A9270; C1725; C1751; C1760; C1769; C1785; C1874; C1887; C1894; C1898; C9113; C9600; C9604; J1644; J1650; J1940; J2250; J2370; J2405; J3010; J3370; J7030; J7040; J7050; Q9967; U0004

== ENCOUNTER → 2023-04-21 | Outpatient (CLI) | payer MEDICARE ==
[~2023-04-21] MED LIST changes: +ATOR40TA PO; +C COMPLEX1000 M1 PO; +CLOP75 PO; +ENTRESTO 24 MG1 EACH PO; +EZET10 PO; +Nitrostat0.3 MG SL; +PYRI100 PO; +VALS80 PO; +VITAMIN D310 MC4 PO; +Vitamin B-121000 MCG PO; +ZINC GLUCONATE PO
== END ==
LOC: LAB SHORT 07:50 → PLD 07:50
DX: C44.42 Squamous cell carcinoma of skin of scalp and neck (principal)
CPT/HCPCS: 88305